=== PATIENT | male | born 1960 | race African-American/Black ===

== ENCOUNTER 2020-12-18 11:02 | Emergency (ER) | payer BC ==
[~2020-12-18] VITALS: Ht 182.9 cm; Wt 83.9 kg
[2020-12-18] MEDS ORDERED: TAMS-11 PO (11:31)
[2020-12-18 11:33] VITALS: BP_SYST 140
[2020-12-18 12:05] LABS: BASOPHILS % (AUTO) 0.7 % (0.0-2.0); EOSINOPHILS # (AUTO) 0.1 K/uL (0.0-0.4); EOSINOPHILS % (AUTO) 1.5 % (0.0-4.0); HEMATOCRIT 43.3 % (36-54); HEMOGLOBIN 14.9 g/dL (14.0-18.0); LYMPHOCYTES # (AUTO) 0.9 K/uL (1.0-5.5); MEAN CORPUSCULAR HEMOGLOBIN 37 pg (27-31); MEAN CORPUSCULAR HGB CONC 35 % (32-36); MEAN CORPUSCULAR VOLUME 107 fL (79.0-98.0); MONOCYTES # (AUTO) 0.7 K/uL (0.0-1.0); MONOCYTES % (AUTO) 11.4 % (1.7-9.3); NEUTROPHILS # (AUTO) 4.4 K/uL (1.8-7.7); NEUTROPHILS % (AUTO) 72.4 % (40.0-70.0); PLATELET COUNT (AUTO) 367 K/uL (130-430); RED BLOOD CELL COUNT(AUTO) 4.06 MIL/uL (4.2-6.2); RED CELL DISTRIBUTION WIDTH 13.3 % (9.0-15.0); WHITE BLOOD COUNT (AUTO) 6.1 K/uL (4.8-10.8)
[2020-12-18 12:33] LABS: CALCIUM 9.2 mg/dL (8.4-11.0); CREATININE 1.23 mg/dL (0.55-1.30)
[2020-12-18] MEDS ORDERED: POTASSIUM CHLORIDE 20 MEQ/PKT PACKET PO ONE (13:00)
[2020-12-18 13:30] LABS: BILIRUBIN,URINE 1+ (NEGATIVE); BLOOD, URINE 3+ (NEGATIVE); COLOR,URINE RED (YELLOW); GLUCOSE,URINE TRACE (NEGATIVE); KETONES,URINE 1+ (NEGATIVE); LEUKOCYTE ESTERASE ,URINE 2+ (NEGATIVE); NITRITE, URINE POSITIVE (NEGATIVE); PH,URINE 5.5 (5.0-8.0); PROTEIN URINE 1+ (NEGATIVE)
[2020-12-18 13:39] LABS: CLARITY/URINE BLOODY (CLEAR)
[2020-12-18] MEDS ORDERED: POTASSIUM CHLORIDE 20 MEQ/PKT PACKET ONE (13:49)
[2020-12-18 13:50] LABS: BACTERIA,URINE FEW /HPF (None Seen); YEAST,URINE None Seen /HPF (None Seen)
[2020-12-18 13:51] LABS: RBC,URINE 50-80 /HPF (0-3); WBC,URINE 50-80 /HPF (0-3)
[2020-12-18] MEDS ORDERED: CIPR-211 PO (14:00)
[2020-12-18 14:05] VITALS: BP_SYST 128
== END 2020-12-18 14:05 | disposition home or self-care (01) ==
LOC: SED 11:02
DX: R33.9 Retention of urine, unspecified (principal)
CPT/HCPCS: 36415; 80048; 81000-TC; 85025; 87086; 99284